=== PATIENT | female | born 1995 | race African-American/Black ===

== ENCOUNTER 2021-10-19 11:51 | Emergency (ER) | payer MEDICAID ==
[~2021-10-19] VITALS: Ht 170.2 cm; Wt 73.0 kg
[2021-10-19] MEDS ORDERED: DIAZEPAM 5 MG/ML 2ML CPJ IM ONE (12:15)
[2021-10-19] MEDS ORDERED: ONDANSETRON 4MG ODT PO ONE (12:15)
[2021-10-19 12:58] LABS: BASOPHILS % 0.3 % (0.0-2.0); EOSINOPHILS % 0.3 % (0.0-5.0); HEMATOCRIT. 30.9 % (36.0-48.0); HEMOGLOBIN. 9.5 g/dL (12.0-16.0); MEAN CORPUSCULAR HEMOGLOBIN 19.5 pg (28.0-32.0); MEAN CORPUSCULAR VOLUME 63.6 fL (81.0-99.0); MEAN PLATELET VOLUME 7.7 fl (7.4-10.4); NEUTROPHILS % 83.4 % (40.0-76.0); PLATELET 442 x1000/uL (130-400); RED BLOOD CELL COUNT 4.86 mill/uL (4.2-5.4)
[2021-10-19 13:00] LABS: CHLORIDE 109 mEq/L (98-107)
[2021-10-19] MEDS ORDERED: MIDAZOLAM HCL 2 MG/2 ML VIAL IV ONE ×2 (13:00→14:30)
[2021-10-19] MEDS ORDERED: MORPHINE SULFATE 4 MG/ML CPJ (NOT FOR IM USE) IV STA (13:43)
[2021-10-19] MEDS ORDERED: ONDANSETRON HCL 4MG/2ML INJ IV STA (13:43)
[2021-10-19] MEDS ORDERED: LORAZEPAM 1MG TABLET PO ONE (14:00)
[2021-10-19 14:04] LABS: PLATELET ESTIMATE SLIGHTLY INCREASED
[2021-10-19] MEDS ORDERED: MIDAZOLAM HCL 2 MG/2 ML VIAL IV NR (14:45)
[2021-10-19] MEDS ORDERED: HALOPERIDOL LACTATE 5MG/ML VIAL IM ONE (14:45)
[2021-10-19] MEDS ORDERED: DIPHENHYDRAMINE 50MG/ML VIAL IV ONE (14:45)
[2021-10-19 15:28] VITALS: BP 132/70
[2021-10-19 16:17] LABS: *AMPHETAMINES SCREEN URINE NEGATIVE (NEGATIVE); *BARBITURATES SCREEN URINE NEGATIVE (NEGATIVE); *BENZODIAZEPINES SCREEN URINE NEGATIVE (NEGATIVE); *COCAINE SCREEN URINE NEGATIVE (NEGATIVE); METHADONE URINE SCREEN NEGATIVE (NEGATIVE); OPIATES URINE SCREEN NEGATIVE (NEGATIVE); PHENCYCLIDINE URINE SCREEN NEGATIVE (NEGATIVE)
[2021-10-19 16:22] LABS: CANNABINOID URINE SCREEN PRESUMTIVE POSITIVE (NEGATIVE)
== END 2021-10-19 16:55 | disposition home or self-care (01) ==
LOC: ER 12:04
DX: F41.9 Anxiety disorder, unspecified (principal)
CPT/HCPCS: 36415; 71045; 80053; 80305; 83880; 84484; 85025; 85379; 93005; 96372; 96374; 96375; 99285; J1200; J1630; J2250; J2270; J2405; Q0162